=== PATIENT | female | born 1965 | race Caucasian/White ===

== ENCOUNTER 2016-08-06 10:37 | Observation (INO) | payer OTHER ==
[~2016-08-06] VITALS: Ht 165.1 cm; Wt 75.1 kg
[~2016-08-06 10:37] MED LIST: ACETAMINOPHEN-1 EAC1; ASPIR-TRIN325 MG PO; COUMADIN,JANTOVE1 MG PO; ENDOCET 5-3251 EACH PO; Feosol PO; HYDROCODON-ACE1 EACH; NAPROSYN500 MG PO; OXYCODONE HCL5 MG; OxyCONTIN PO; SENOKOT S,PE1 TABLET PO; Tylenol Regular Stre PO; VISTARIL25 MG PO
[2016-08-06 11:45] LABS: HEMATOCRIT 43.2 % (36.0-46.0); MCH 33.7 PG (29.0-34.0); MCHC 33.3 G/DL (30.0-36.0); MCV 101.2 FL (83-99); MEAN PLAT.VOLUME 11.4 uM^3 (9.5-12.4); PLATELET COUNT 180 K/uL (156-360); RBC DIS.WIDTH-CV 12.4 % (11.8-14.6); RBC DIS.WIDTH-SD 45.1 % (39-53); RED BLOOD COUNT 4.27 M/uL (3.80-5.20); WHITE BLOOD COUNT 6.4 K/uL (4.1-10.2)
[2016-08-06 11:55] LABS: CHLORIDE 107 mEq/L (99-109); POTASSIUM 4.2 mEq/L (3.7-5.4); SODIUM 140 mEq/L (136-147)
[2016-08-06 11:57] LABS: GLUCOSE 96 mg/dL (70-99)
[2016-08-06 11:58] LABS: ANION GAP 11 MEQ/L (2-14)
[2016-08-06 12:01] LABS: GFR ESTIMATE (CALCULATED) > 59 mL/min/
[2016-08-06 12:02] LABS: UREA NITROGEN (BUN) 6 mg/dL (9-23)
[2016-08-06 12:05] LABS: TROP-I INTERPRETATION NEGATIVE; TROPONIN-I < 0.01 ng/mL (0.0-0.30)
[2016-08-06] MEDS ORDERED: PERCOCET 5/31 TABLET PO (16:01)
[2016-08-06] MEDS ORDERED: LIDOCAINE HCL35 GM TP (16:02)
[2016-08-06] MEDS ORDERED: LYRICA100 MG PO (16:02)
[2016-08-06] MEDS ORDERED: MS CONTIN,ORAMO15 M1 PO (16:02)
[2016-08-06] MEDS ORDERED: ALEVE220 MG PO (16:02)
[2016-08-06 18:16] LABS: INFLUENZA A VIRAL ANTIGEN NEGATIVE; INFLUENZA B VIRAL ANTIGEN NEGATIVE
[2016-08-06 18:33] LABS: TROP-I INTERPRETATION NEGATIVE; TROPONIN-I < 0.01 ng/mL (0.0-0.30)
[2016-08-06 19:03] VITALS: BP 125/64
[2016-08-06 21:00] VITALS: BP 120/59
[2016-08-07] VITALS: BP 114/56
[2016-08-07 00:56] LABS: TROP-I INTERPRETATION NEGATIVE; TROPONIN-I < 0.01 ng/mL (0.0-0.30)
[2016-08-07 06:44] LABS: HEMATOCRIT 42.1 % (36.0-46.0); MCH 33.6 PG (29.0-34.0); MCHC 32.8 G/DL (30.0-36.0); MCV 102.4 FL (83-99); MEAN PLAT.VOLUME 11.6 uM^3 (9.5-12.4); PLATELET COUNT 202 K/uL (156-360); RBC DIS.WIDTH-CV 12.7 % (11.8-14.6); RBC DIS.WIDTH-SD 47.3 % (39-53); RED BLOOD COUNT 4.11 M/uL (3.80-5.20)
[2016-08-07 06:46] LABS: ANION GAP 9 MEQ/L (2-14); CHLORIDE 107 MEQ/L (99-109); GFR ESTIMATE (CALCULATED) > 59 mL/min/; GLUCOSE 105 mg/dL (70-99); POTASSIUM 4.4 MEQ/L (3.7-5.4); SAMPLE HEMOLYSIS CHECK 0; SAMPLE ICTERIC CHECK 0; SAMPLE LIPEMIA CHECK 0; SODIUM 141 MEQ/L (136-147); UREA NITROGEN (BUN) 11 mg/dL (9-23)
[2016-08-07 08:12] VITALS: BP 122/73
[2016-08-07] MEDS ORDERED: BENZONATATE100 MG PO (12:23)
[2016-08-07] MEDS ORDERED: DUONEB 2.5-0.5 M3 ML AEROSOL (12:26)
[2016-08-07] MEDS ORDERED: GUAIFENESIN WI120 M1 PO (12:26)
[2016-08-07] MEDS ORDERED: VENTOLIN HFA18 GM IH (12:26)
[2016-08-07] MEDS ORDERED: DELTASONE20 M1 PO (12:26)
[2016-08-07] MEDS ORDERED: PREDNISONE10 MG PO ×2 (12:26)
[2016-08-07 13:08] VITALS: BP 90/53
[2016-08-07 17:01] VITALS: BP 106/64
[2016-08-07 20:13] VITALS: BP 106/57
[2016-08-08] VITALS: BP 103/59
[2016-08-08 03:51] VITALS: BP 81/49
[2016-08-08 04:00] VITALS: BP 96/52
[2016-08-08 08:12] VITALS: BP 107/62
[2016-08-08 11:41] VITALS: BP 100/59
== END 2016-08-08 14:19 | disposition home or self-care (01) ==
LOC: EME 10:37 → 5WEST 17:27 → EDOF 17:27 → 5WEST 18:13
PROVIDERS: Emergency Medicine; Physician Assistant
DX: J44.1 Chronic obstructive pulmonary disease with (acute) exacerbation (principal); J44.0 Chronic obstructive pulmonary disease with (acute) lower respiratory infection; J20.9 Acute bronchitis, unspecified; R09.02 Hypoxemia; F17.210 Nicotine dependence, cigarettes, uncomplicated; G89.4 Chronic pain syndrome; Z79.891 Long term (current) use of opiate analgesic; R00.0 Tachycardia, unspecified; Z96.651 Presence of right artificial knee joint; Z88.0 Allergy status to penicillin
CPT/HCPCS: 71020; 80048; 84484; 85027; 85379; 87502; 93005; 94640; 94640 76; 94760; 94799; 99202; 99281; 99284; G0378; J1650; J2920; J2930; J7512

== ENCOUNTER 2017-03-30 10:25 | Emergency (ER) | payer OTHER ==
[~2017-03-30] VITALS: Ht 165.1 cm; Wt 76.3 kg
[~2017-03-30 10:25] MED LIST changes: +ALEVE220 MG PO; +BENZONATATE100 MG PO; +DELTASONE20 M1 PO; +DUONEB 2.5-0.5 M3 ML AEROSOL; +GUAIFENESIN WI120 M1 PO; +LIDOCAINE HCL35 GM TP; +LYRICA100 MG PO; +MS CONTIN,ORAMO15 M1 PO; +PERCOCET 5/31 TABLET PO; +PREDNISONE10 MG PO; +VENTOLIN HFA18 GM IH
[2017-03-30 13:14] LABS: EOSINOPHIL COUNT 0.1 K/uL (0-0.3); HEMATOCRIT 39.3 % (36.0-46.0); IMMATURE GRANULOCYTE (%) 0.5 % (0.0-0.7); IMMATURE GRANULOCYTE COUNT 0.1 K/uL; INSTRUMENT ABS NEUTROPHIL CT 5.9 K/uL; LYMPHOCYTE COUNT 2.5 K/uL (1.0-2.8); MCH 32.6 PG (29.0-34.0); MCHC 34.1 G/DL (30.0-36.0); MCV 95.6 FL (83-99); MONOCYTE (%) 13.6 % (3-12); MONOCYTE COUNT 1.4 K/uL (0-0.8); NEUTROPHIL (%) 59.6 % (45-76); NEUTROPHIL COUNT 5.9 K/uL (1.8-6.4); NRBC (%) 0.3 /100 WBC (0-0); RBC DIS.WIDTH-CV 14.2 % (11.8-14.6); RBC DIS.WIDTH-SD 50.2 % (39-53); RED BLOOD COUNT 4.11 M/uL (3.80-5.20); WHITE BLOOD COUNT 9.9 K/uL (4.1-10.2)
[2017-03-30 13:53] LABS: HEMATOLOGY COMMENT 1 SMEAR COMPATIBLE; MEAN PLAT.VOLUME 11.1 uM^3 (9.5-12.4); PLAT.SUFFICIENCY ADEQUATE; PLATELET COUNT 205 K/uL (156-360)
[2017-03-30 14:40] VITALS: BP 89/62
[2017-03-31] MEDS ORDERED: LYRICA100 MG PO (15:21)
[2017-03-31] MEDS ORDERED: PERCOCET 10/1 TABLET PO (15:22)
== END 2017-03-30 14:43 | disposition home or self-care (01) ==
LOC: EME 10:25
PROVIDERS: Emergency Medicine
DX: L03.115 Cellulitis of right lower limb (principal); G89.29 Other chronic pain; Z79.891 Long term (current) use of opiate analgesic; Z88.0 Allergy status to penicillin; F17.200 Nicotine dependence, unspecified, uncomplicated
CPT/HCPCS: 80048; 85025; 87040; 99281; 99284; J0696; J7050

== ENCOUNTER 2017-04-08 22:26 | Emergency (ER) | payer OTHER ==
[~2017-04-08] VITALS: Ht 165.1 cm; Wt 76.8 kg
[~2017-04-08 22:26] MED LIST changes: +PERCOCET 10/1 TABLET PO
[2017-04-09 01:01] LABS: HEMATOCRIT 36.6 % (36.0-46.0); MCH 32.8 PG (29.0-34.0); MCHC 32.2 G/DL (30.0-36.0); MCV 101.7 FL (83-99); MEAN PLAT.VOLUME 9.1 uM^3 (9.5-12.4); PLATELET COUNT 401 K/uL (156-360); RBC DIS.WIDTH-CV 13.8 % (11.8-14.6); RBC DIS.WIDTH-SD 51.8 % (39-53); WHITE BLOOD COUNT 6.2 K/uL (4.1-10.2)
[2017-04-09 01:04] LABS: CHLORIDE 101 mEq/L (99-109); POTASSIUM 4.1 mEq/L (3.7-5.4); SODIUM 137 mEq/L (136-147)
[2017-04-09 01:06] LABS: GLUCOSE 96 mg/dL (70-99)
[2017-04-09 01:07] LABS: ANION GAP 8 MEQ/L (2-14)
[2017-04-09 01:08] LABS: TOTAL BILIRUBIN 0.2 mg/dL (0.0-1.0)
[2017-04-09 01:09] LABS: ALKALINE PHOSPHATASE 72 IU/L (3-129)
[2017-04-09 01:10] LABS: GFR ESTIMATE (CALCULATED) > 59 mL/min/
[2017-04-09 01:11] LABS: UREA NITROGEN (BUN) 16 mg/dL (9-23)
[2017-04-09 01:13] LABS: URIC ACID 4.5 mg/dL (3.1-9.2)
[2017-04-09 01:20] LABS: INTER. NORMALIZED RATIO 1.3; PROTHROMBIN TIME 14.7 SEC (10.2-12.9)
[2017-04-09 01:22] LABS: PTT 34.8 SEC (25-37)
[2017-04-09 02:44] LABS: C-REACTIVE PROTEIN 108.8 MG/L (0-10)
[2017-04-09] MEDS ORDERED: PERCOCET 5/31 TABLET PO (03:23)
[2017-04-09 04:12] VITALS: BP 115/60
== END 2017-04-09 04:13 | disposition home or self-care (01) ==
LOC: EME 22:26
PROVIDERS: Physician Assistant
DX: M79.604 Pain in right leg (principal); G89.29 Other chronic pain; L03.115 Cellulitis of right lower limb; Z79.2 Long term (current) use of antibiotics; F17.200 Nicotine dependence, unspecified, uncomplicated; Z88.0 Allergy status to penicillin
CPT/HCPCS: 80053; 83605; 84550; 85027; 85610; 85730; 86140; 93971; 99281; 99285

== ENCOUNTER 2017-05-05 08:51 | Observation (INO) | payer OTHER ==
[~2017-05-05] VITALS: Ht 165.1 cm; Wt 78.3 kg
[2017-05-05 11:19] LABS: EOSINOPHIL (%) 1.9 % (0-5); EOSINOPHIL COUNT 0.1 K/uL (0-0.3); HEMATOCRIT 36.7 % (36.0-46.0); IMMATURE GRANULOCYTE (%) 0.2 % (0.0-0.7); INSTRUMENT ABS NEUTROPHIL CT 3.2 K/uL; LYMPHOCYTE COUNT 1.6 K/uL (1.0-2.8); MCH 32.3 PG (29.0-34.0); MCHC 32.2 G/DL (30.0-36.0); MCV 100.5 FL (83-99); MEAN PLAT.VOLUME 9.7 uM^3 (9.5-12.4); MONOCYTE (%) 6.1 % (3-12); MONOCYTE COUNT 0.3 K/uL (0-0.8); NEUTROPHIL (%) 60.9 % (45-76); NEUTROPHIL COUNT 3.2 K/uL (1.8-6.4); RBC DIS.WIDTH-CV 13.2 % (11.8-14.6); RBC DIS.WIDTH-SD 49.2 % (39-53); RED BLOOD COUNT 3.65 M/uL (3.80-5.20); WHITE BLOOD COUNT 5.2 K/uL (4.1-10.2)
[2017-05-05 11:20] LABS: PLATELET COUNT 177 K/uL (156-360)
[2017-05-05 11:27] LABS: CHLORIDE 108 mEq/L (99-109); POTASSIUM 3.9 mEq/L (3.7-5.4); SODIUM 137 mEq/L (136-147)
[2017-05-05 11:29] LABS: GLUCOSE 131 mg/dL (70-99)
[2017-05-05 11:30] LABS: ANION GAP 3 MEQ/L (2-14)
[2017-05-05 11:32] LABS: GFR ESTIMATE (CALCULATED) > 59 mL/min/
[2017-05-05 11:33] LABS: UREA NITROGEN (BUN) 11 mg/dL (9-23)
[2017-05-05 11:37] LABS: TROP-I INTERPRETATION NEGATIVE; TROPONIN-I < 0.01 ng/mL (0.0-0.30)
[2017-05-05] MEDS ORDERED: MOBIC15 MG PO (14:18)
[2017-05-05] MEDS ORDERED: ROXICODONE15 MG PO (14:19)
[2017-05-05] MEDS ORDERED: FUROSEMIDE20 MG PO (14:19)
[2017-05-05 15:05] VITALS: BP 137/73
[2017-05-05 18:02] LABS: TROP-I INTERPRETATION NEGATIVE; TROPONIN-I < 0.01 ng/mL (0.0-0.30)
[2017-05-05 20:30] VITALS: BP 108/63
[2017-05-05 23:42] VITALS: BP 105/60
[2017-05-06 01:00] LABS: TROP-I INTERPRETATION NEGATIVE; TROPONIN-I < 0.01 ng/mL (0.0-0.30)
[2017-05-06 03:41] VITALS: BP 116/6
[2017-05-06 07:52] VITALS: BP 113/63
[2017-05-06 11:58] VITALS: BP 115/89
[2017-05-06] MEDS ORDERED: NICOTINE PATCH1 EAC2 TD (12:04)
[2017-05-06] MEDS ORDERED: LEVOFLOXACIN750 MG PO (12:04)
[2017-05-06] MEDS ORDERED: PREDNISONE10 MG PO (12:05)
[2017-05-06] MEDS ORDERED: VENTOLIN HFA18 GM IH (12:05)
[2017-05-06] MEDS ORDERED: SPIRIVA18 MCG IH (12:06)
== END 2017-05-06 13:39 | disposition home or self-care (01) ==
LOC: EME 08:51 → EDOF 13:35 → ENRESERV 13:38 → CANRESERV 13:38 → ENRESERV 13:45 → CANRESERV 13:45 → ENRESERV 14:19 → 5WEST 15:03
PROVIDERS: Emergency Medicine; Internal Medicine
DX: J44.1 Chronic obstructive pulmonary disease with (acute) exacerbation (principal); R09.02 Hypoxemia; F17.210 Nicotine dependence, cigarettes, uncomplicated; R91.8 Other nonspecific abnormal finding of lung field; D64.9 Anemia, unspecified; G89.4 Chronic pain syndrome; Z96.651 Presence of right artificial knee joint; Z91.14 Patient's other noncompliance with medication regimen; Z79.891 Long term (current) use of opiate analgesic; Z88.0 Allergy status to penicillin
CPT/HCPCS: 71010; 71260; 80048; 84484; 85025; 93005; 94640; 94640 76; 94760; 94799; 99202; 99281; 99285; G0378; J1650; J2930; J7030; J7644